=== PATIENT | female | born 1975 | race Caucasian/White ===

== ENCOUNTER 2017-06-10 19:43 | Emergency (ER) | payer BC ==
[2017-06-10] MEDS ORDERED: HYDROmorphone 1 MG/ML Syringe IVPUSH ONE (20:27)
[2017-06-10] MEDS ORDERED: Sodium Chloride 0.9% 10 ML Syringe FLUSH PRN (20:27)
[2017-06-10] MEDS ORDERED: Ondansetron 4 MG/2 ML SDV IVPUSH ONE (20:27)
[2017-06-10] MEDS ORDERED: Famotidine 20 MG/2 ML SDV IVPUSH ONE (20:27)
[2017-06-10] MEDS ORDERED: Sodium Chloride 0.9% 500 ML IV ONE (20:28)
--- NOTE | 2017-06-10 20:40 | EDM.PDOC ---
ED HPI GENERAL MEDICAL PROBLEM - General Chief Complaint: Abdominal Pain Stated Complaint: left side pain Time Seen by Provider: 06/10/17 19:55 Source of Information: Reports: Patient, RN Notes Reviewed - History of Present Illness INITIAL COMMENTS - FREE TEXT/NARRATIVE: 41-year-old lady presents to the ED with left upper abdominal pain first started 4 days ago. This did start is just a mild achy and burning discomfort somewhat intermittent at first but becoming more persistent and now today much more severe. She did have a normal BM earlier this past morning and did start having somewhat frequent watery diarrhea later this morning and this afternoon. She denies nausea or vomiting. She's been drinking a lot of water and tea. Has also been eating. No fever or chills. Stool has not been black or tarry. She states also the pain does radiate up to the left chest and is worse with deep breathing. She has not been coughing and she does not feel short of breath. Left Upper Abdomen Pain Score (Numeric/FACES): 8 - Related Data Allergies Allergy/AdvReac Type Severity Reaction Status Date / Time No Known Drug Allergies Allergy N/A Verified 06/10/17 19:51 Home Meds: Home Meds Hydrocodone/Acetaminophen [[place] 5-325 Tablet] 1 each PO Q4H PRN #14 tablet [Rx] Levofloxacin [Levaquin] 500 mg PO DAILY #7 tab 06/10/17 [Rx] Lisinopril/Hydrochlorothiazide [Lisinopril-Hctz 10-12.5 mg Tab] 1 tab PO DAILY 06/10/17 [History] metroNIDAZOLE [Flagyl] 500 mg PO Q8H #20 tab 06/10/17 [Rx] Past Medical History HEENT History: Reports: Impaired Vision Cardiovascular History: Reports: Hypertension Gastrointestinal History: Reports: GERD Other Gastrointestinal History: soft stools Psychiatric History: Reports: Anxiety, Depression - Past Surgical History Female Surgical History: Reports: D&C, Hysterectomy Musculoskeletal Surgical History: Reports: Arthroscopic Knee Social & Family History - Tobacco Use Smoking Status *Q: Current Every Day Smoker Years of Tobacco use: 20 Packs/Tins Daily: 1.5 - Caffeine Use Caffeine Use: Reports: Coffee, Soda - Alcohol Use Days Per Week of Alcohol Use: 7 Number of Drinks Per Day: 5 Total Drinks Per Week: 35 - Recreational Drug Use Recreational Drug Use: No ED ROS GENERAL - Review of Systems Review Of Systems: See Below Constitutional: Denies: Fever, Chills HEENT: Denies: Sinus Problem, Throat Pain Respiratory: Reports: Pleuritic Chest Pain. Denies: Shortness of Breath, Wheezing Cardiovascular: Reports: Chest Pain GI/Abdominal: Reports: Abdominal Pain (Left upper quadrant), Diarrhea (Frequent diarrhea this past morning and continuing into the afternoon, now better). Denies: Hematochezia, Melena, Nausea, Vomiting Musculoskeletal: Denies: Back Pain Skin: Reports: No Symptoms Neurological: Reports: No Symptoms ED EXAM, GI/ABD - Physical Exam Exam: See Below General Appearance: Alert, Moderate Distress Eyes: Bilateral: Normal Appearance Throat/Mouth: Normal Inspection, Other (Or mucosa is mildly dry) Head: Atraumatic Neck: Supple, Full Range of Motion Respiratory/Chest: No Respiratory Distress, Lungs Clear, Normal Breath Sounds Cardiovascular: Tachycardia GI/Abdominal Exam: Tender (Very tender left upper quadrant, mild to moderate tenderness left lower quadrant., Right abdomen and upper mid abdomen soft and nontender) Back Exam: CVA Tenderness (L) Extremities: Normal Inspection, Normal Range of Motion Neurological: Alert, Oriented, No Motor/Sensory Deficits Skin Exam: Dry, Normal Color Course - Vital Signs Last Recorded V/S: Last Vital Signs Temp 98.4 F 06/10/17 19:52 Pulse 104 H 06/10/17 19:52 Resp 14 06/10/17 19:52 BP 159/94 H 06/10/17 19:52 Pulse Ox 100 06/10/17 19:52 - Orders/Labs/Meds Orders: Active Orders 24 hr Category Date Time Status Peripheral IV Care [RC] . DIRECTED Care 06/10/17 20:28 Active Abdomen 2V AP Flat Upright [CR] Stat Exams 06/10/17 20:27 Taken Peripheral IV Insertion Adult [OM.PC] Stat Oth 06/10/17 20:27 Ordered Labs: Laboratory Tests 06/10/17 06/10/17 06/10/17 Range/Units 20:46 20:46 20:46 WBC 11.94 H (3.98-10.04) K/mm3 RBC 4.21 (3.98-5.22) M/mm3 Hgb 14.1 (11.2-15.7) gm/L Hct 41.4 (34.1-44.9) % MCV 98.3 H (79.4-94.8) fl MCH 33.5 H (25.6-32.2) pg MCHC 34.1 (32.2-35.5) g/dl RDW Std Deviation 46.0 (36.4-46.3) fL Plt Count 220 (182-369) K/mm3 MPV 10.0 (9.4-12.3) fl Neut % (Auto) 59.3 (34.0-71.1) % Lymph % (Auto) 31.3 (19.3-51.7) % [place] % (Auto) 5.6 (4.7-12.5) % Eos % (Auto) 2.8 (0.7-5.8) Baso % (Auto) 0.7 (0.1-1.2) % Neut # (Auto) 7.09 H (1.56-6.13) K/mm3 Lymph # (Auto) 3.74 (1.18-3.74) K/mm3 [place] # (Auto) 0.67 H (0.24-0.36) K/mm3 Eos # (Auto) 0.33 (0.04-0.36) K/mm3 Baso # (Auto) 0.08 (0.01-0.08) K/mm3 Sodium 135 L (136-145) mEq/L Potassium 3.3 L (3.5-5.1) mEq/L Chloride 98 (98-107) mEq/L Carbon Dioxide 22 (21-32) mEq/L Anion Gap 18.3 H (5-15) BUN 9 (7-18) mg/dL Creatinine 0.8 (0.55-1.02) mg/dL Est Cr Clr Drug Dosing 89.99 mL/min Estimated GFR (MDRD) > 60 (>60) mL/min BUN/Creatinine Ratio 11.3 L (14-18) Glucose 99 (74-106) mg/dL Calcium 9.1 (8.5-10.1) mg/dL Total Bilirubin 0.4 (0.2-1.0) mg/dL AST 43 H (15-37) U/L ALT 48 (14-59) U/L Alkaline Phosphatase 95 (46-116) U/L C-Reactive Protein 1.0 (<1.0) mg/dL Total Protein 7.7 (6.4-8.2) g/dl Albumin 4.1 (3.4-5.0) g/dl Globulin 3.6 gm/dL Albumin/Globulin Ratio 1.1 (1-2) Meds: Medications Discontinued Medications Generic Name Dose Route Start Last Admin Trade Name Alanq PRN Reason Stop Dose Admin Famotidine 20 mg 06/10/17 20:27 06/10/17 20:41 Pepcid IVPUSH 06/10/17 20:28 20 mg ONETIME ONE Administration Hydromorphone HCl 0.5 mg 06/10/17 20:27 06/10/17 20:41 Dilaudid IVPUSH 06/10/17 20:28 0.5 mg ONETIME ONE Administration Hydromorphone HCl 0.5 mg 06/10/17 21:42 06/10/17 21:46 Dilaudid IVPUSH 06/10/17 21:43 0.5 mg ONETIME ONE Administration Hydromorphone HCl 0.5 mg 06/10/17 23:10 06/10/17 23:14 Dilaudid IVPUSH 06/10/17 23:11 0.5 mg ONETIME ONE Administration Sodium Chloride 500 mls @ 999 mls/hr 06/10/17 20:28 06/10/17 20:41 Normal Saline IV 06/10/17 20:58 999 mls/hr .BOLUS ONE Administration Sodium Chloride 1,000 mls @ 999 mls/hr 06/10/17 22:15 06/10/17 22:10 Normal Saline IV 999 mls/hr ONETIME TERE Administration Metronidazole 500 mg/ Premix 100 mls @ 100 mls/hr 06/10/17 22:02 06/10/17 22: 10 IV 06/10/17 23:01 100 mls/hr ONETIME ONE Administration Levofloxacin 500 mg 06/10/17 22:01 06/10/17 22:10 Levaquin PO 06/10/17 22:02 500 mg ONETIME ONE Administration Ondansetron HCl 4 mg 06/10/17 20:27 06/10/17 20:41 Zofran IVPUSH 06/10/17 20:28 4 mg ONETIME ONE Administration Sodium Chloride 10 ml 06/10/17 20:27 06/10/17 20:47 Saline Flush FLUSH 10 ml ASDIRECTED PRN Administration Keep Vein Open - Re-Assessments/Exams Free Text/Narrative Re-Assessment/Exam: 06/10/17 22:03. Patient did feel better after the initial dose 0.5 mg Dilaudid IV. However pain did start coming back a while ago so have given further 0.5 mg IV. She's had her first liter of normal saline. She still does not feel a need to void. Labs show that she was more dehydrated than I had expected. We are going to give a second liter of normal saline. She continues to be most tender left upper quadrant with mild tenderness left lower quadrant remainder of abdomen soft and nontender. She appears to have a colitis, will start her on Levaquin 500 mg daily. We'll give her first dose of Flagyl IV at this time. Departure - Departure Time of Disposition: 23:15 Disposition: Home, Self-Care 01 Condition: Fair Clinical Impression: Colitis Abdominal pain Qualifiers: Abdominal location: upper abdomen, unspecified Qualified Code(s): R10.10 - Upper abdominal pain, unspecified - Discharge Information Prescriptions: Hydrocodone/Acetaminophen [[place] 5-325 Tablet] 1 each PO Q4H PRN #14 tablet PRN Reason: Pain Levofloxacin [Levaquin] 500 mg PO DAILY #7 tab metroNIDAZOLE [Flagyl] 500 mg PO Q8H #20 tab Instructions: Abdominal Pain, Adult, [id number], Colitis Referrals: Debbie Soliman, [facility] [Primary Care Provider] - Forms: ED Department Discharge Additional Instructions: Clear liquids only until tomorrow evening, then very careful bland diet as tolerated once he knows symptoms are improving, Levaquin 500 milligrams daily, you can take your next dose tomorrow morning and then continue that daily until gone, Flagyl 500 mg 3 times daily. You've been given your initial dose IV will here in the ED this evening. Next dose 12 morning and continue that 3 times daily until gone. Tylenol for mild to moderate discomfort or hydrocodone if needed for more severe pain. Probiotic 3 times daily for the next week. Try follow-up this Thursday at clinic for recheck, call tomorrow morning for appointment, return to ED as needed. - My Orders Last 24 Hours: My Active Orders 06/10/17 20:27 Abdomen 2V AP Flat Upright [CR] Stat Peripheral IV Insertion Adult [OM.PC] Stat 06/10/17 20:28 Peripheral IV Care [RC] . DIRECTED - Assessment/Plan Last 24 Hours: My Active Orders 06/10/17 20:27 Abdomen 2V AP Flat Upright [CR] Stat Peripheral IV Insertion Adult [OM.PC] Stat 06/10/17 20:28 Peripheral IV Care [RC] . DIRECTED
[2017-06-10] MEDS ORDERED: HYDROmorphone 0.5 MG/0.5 ML Syringe IVPUSH ONE ×2 (21:42→23:10)
[2017-06-10] MEDS ORDERED: Levofloxacin 250 MG Tab PO ONE (22:01)
[2017-06-10] MEDS ORDERED: metroNIDAZOLE/Normal Saline 500 MG in Premix Bag 1 BAG IV ONE (22:02)
[2017-06-10] MEDS ORDERED: Sodium Chloride 0.9% 1,000 ML IV SCH (22:15)
--- NOTE | 2017-06-11 06:40 | CR ---
Abdomen: Supine and upright views of the abdomen were obtained. Opacity is seen within the left midabdomen most likely due to ingested material. Bowel gas pattern is otherwise normal. No free air is seen. No soft tissue abnormality is seen. Bony structures are unremarkable. Impression: 1. Opacity within left abdomen most likely due to ingested material. 2. Two-view abdominal study is otherwise unremarkable. Diagnostic code #2
== END 2017-06-10 23:45 | disposition home or self-care (01) ==
LOC: JD.ED 19:43
DX: K52.9 Noninfective gastroenteritis and colitis, unspecified (principal); I10 Essential (primary) hypertension; K21.9 Gastro-esophageal reflux disease without esophagitis; F17.210 Nicotine dependence, cigarettes, uncomplicated; Z79.899 Other long term (current) drug therapy
CPT/HCPCS: 36415; 74019; 80053; 85025; 86140; 96361; 96365; 96366; 96375; 96376; 99284; A9270; J1170; J2405; J7040; J7050

== ENCOUNTER → 2024-02-24 | Day surgery (SDC) | payer BC | LOC: JD.INTMED 12:07 → JD.US 12:27 | PROVIDERS: ATTEND Internal Medicine | DX: M77.30 Calcaneal spur, unspecified foot (principal); M19.079 Primary osteoarthritis, unspecified ankle and foot | CPT/HCPCS: 73620-26-RT; 73620-RT ==